=== PATIENT | female | born 1950 | race African-American/Black ===

== ENCOUNTER 2022-03-02 11:57 | Day surgery (SDC) | payer MEDICARE, OTHER ==
[2022-03-02] MEDS ORDERED: TROPICAMIDE 1% OPTH 3 ML BOT ONE (12:24)
[2022-03-02] MEDS ORDERED: Ringers Lactate 0 ML IV ONE (12:25)
[2022-03-02] MEDS ORDERED: LIDOCAINE HCL/PF 3.5% OPTH GEL ONE (12:25)
[2022-03-02] MEDS ORDERED: NA CHLORIDE 0.9% 1,000 ML ONE (12:35)
[2022-03-02] MEDS ORDERED: BSS PLUS IRR ONE (12:39)
[2022-03-02] MEDS ORDERED: MOXIFLOXACIN HCL 10 DROPS/ML **OR USE OPTH ONE (12:39)
[2022-03-02] MEDS ORDERED: EPINEPHRINE/PF 1 MG/ML AMP ONE ×2 (12:39→12:44)
[2022-03-02] MEDS ORDERED: POVIDONE-IODINE 5% EYE DROPS ONE (12:39)
[2022-03-02] MEDS ORDERED: BSS OPTHALMIC SOL 15 ML OPTH ONE (12:39)
[2022-03-02] MEDS ORDERED: DUOVISC 1 KIT OPTH ONE (12:40)
[2022-03-02] MEDS ORDERED: LIDOCAINE 1% MPF 2 ML AMPULE ONE (12:43)
[2022-03-02] MEDS: PHENYLEPHRINE 10% OPTH 5ML ONE ×3 (12:55→13:05)
[2022-03-02] MEDS: CYCLOPENTOLATE 1% OPTH 2 ML ONE ×3 (12:55→13:05)
[2022-03-02] MEDS ORDERED: MIDAZOLAM HCL 2 MG/2 ML INJ ONE (13:22)
[2022-03-02] MEDS ORDERED: ONDANSETRON 4 MG/2 ML VIAL ONE (13:22)
[2022-03-02] MEDS ORDERED: FENTANYL CITR 100 MCG/2 ML ONE (13:22)
[2022-03-02 15:28] VITALS: TEMP 97.6; O2SAT 98
[2022-03-02 15:48] VITALS: BP 128/68
--- NOTE | 2022-03-02 22:31 | OP ---
Date of Procedure: 03/02/2022 Surgeon: Analilia Shukla MD Preoperative Diagnosis: Combined form of cataract, OS (left eye). Operation Performed: Phacoemulsification with intraocular lens implant, left eye. Anesthesia: Ketan Mcbride CRNA, and Bakari Valadez MD. Per cataract surgery. Complications: None. Description Of Procedure: In day surgery, Akten gel was placed in the eye. In the operating room, Akten gel was irrigated out of the eye and the patient was prepped and draped in the usual sterile fashion for ophthalmic surgery. A lid speculum was placed in the left eye. Two paracentesis sites were made superiorly and inferiorly in the limbal cornea. Preservative free lidocaine then Viscoat were placed in the anterior chamber. A keratome was used to enter the anterior chamber. A 360 degree capsulotomy was performed with a utrata forceps. The lens was hydrodissected with BSS and rotated freely. The lens was removed with a chop technique. Residual cortex was removed with the irrigation and aspiration. Provisc was placed in the capsular bag. CC60WF +14.0 lens was placed in the capsular bag without complications. Irrigation and aspiration was used to remove residual viscoelastic. The paracentesis sites were hydrated with BSS. The wound and paracentesis sites were inspected and found to be watertight. Vigamox 0.07 cc was placed intracamerally at the end of the procedure. The eye was patched with a clear plastic shield. The patient was returned to day surgery in good condition. Comments: The lens was loose, but a CTR was not required. Discharge Instructions: The patient is discharged to home in good condition and is to follow up with Dr. Shukla in the morning. KENIA/JASPREET Voice ID: [id number] Report ID: [id number] TEO
== END 2022-03-02 15:45 | disposition home or self-care (01) ==
LOC: OR 11:57
PROVIDERS: ADMIT Ophthalmology Retina Specialist; ATTEND Ophthalmology Retina Specialist
PROC: 08RK3JZ Replacement of Left Lens with Synthetic Substitute, Percutaneous Approach (ICD-10-PCS; principal; 2022-03-02 13:30)
DX: H25.812 Combined forms of age-related cataract, left eye (principal)
CPT/HCPCS: 82947; 66984; J0171; J2250; J3010; J7030; J2405; J7120

== ENCOUNTER 2022-04-27 11:31 | Day surgery (SDC) | payer MEDICARE, OTHER ==
[2022-04-27] MEDS ORDERED: NA CHLORIDE 0.9% 500 ML ONE (11:54)
[2022-04-27] MEDS ORDERED: LIDOCAINE HCL/PF 3.5% OPTH GEL ONE (12:02)
[2022-04-27] MEDS ORDERED: CYCLOPENTOLATE 1% OPTH 2 ML ONE (12:02)
[2022-04-27] MEDS ORDERED: PHENYLEPHRINE 10% OPTH 5ML ONE (12:02)
[2022-04-27] MEDS ORDERED: MOXIFLOXACIN HCL 10 DROPS/ML **OR USE OPTH ONE ×2 (12:03→12:34)
[2022-04-27] MEDS ORDERED: BSS OPTHALMIC SOL 15 ML OPTH ONE (12:34)
[2022-04-27] MEDS ORDERED: BSS PLUS IRR ONE (12:34)
[2022-04-27] MEDS ORDERED: TRYPAN BLUE 0.5 ML SYR OPTH ONE (12:34)
[2022-04-27] MEDS ORDERED: LIDOCAINE 1% MPF 2 ML AMPULE ONE (12:34)
[2022-04-27] MEDS ORDERED: DUOVISC 1 KIT OPTH ONE (12:35)
[2022-04-27] MEDS ORDERED: POVIDONE-IODINE 5% EYE DROPS ONE (12:35)
[2022-04-27] MEDS ORDERED: EPINEPHRINE/PF 1 MG/ML AMP ONE (12:36)
[2022-04-27] MEDS ORDERED: MIDAZOLAM HCL 2 MG/2 ML INJ ONE (13:04)
[2022-04-27] MEDS ORDERED: TETRACAINE HCL 0.5% 4ML OPTH ONE (13:35)
[2022-04-27 14:39] VITALS: BP 147/77; TEMP 97; O2SAT 100
--- NOTE | 2022-04-28 00:59 | OP ---
Date of Procedure: 04/27/2022 Surgeon: Analilia Shukla MD Anesthesiologist: Sandeep Toussaint CRNA and Marco A Graves MD Preoperative Diagnosis: Nuclear sclerotic cataract, right eye. Operation Performed: Phacoemulsification with intraocular lens implant, right eye. Anesthesia: Per cataract surgery. Complications: None. Description Of Procedure: In day surgery, Akten gel was placed in the eye. In the operating room the patient was prepped and draped in the usual sterile fashion for ophthalmic surgery. A lid speculum was placed in the right eye. A paracentesis sites were made superiorly in the limbal cornea. Preservative free lidocaine then Viscoat were placed in the anterior chamber and a a keratome was used to enter the anterior chamber. A 360 degree capsulotomy was performed with a utrata forceps. The lens was hydrodissected with BSS and rotated freely. The lens was removed with a chop technique. 1.77 phaco CDE was used to remove the lens. Residual cortex was removed with the irrigation and aspiration. Provisc was placed in the capsular bag. A CC60WF +13.5 lens was placed in the capsular bag without complications. Irrigation and aspiration were used to remove residual viscoelastic. The paracentesis site was hydrated with BSS. The wound and paracentesis sites were inspected and found to be watertight. Vigamox 0.07 cc was placed intracamerally at the end of the procedure. The eye was patched with a clear shield. The patient was returned to day surgery in good condition. Comments: BSS Plus was used. Discharge Instructions: Ms. Navarro was discharged to home in good condition to follow up with Dr. Shukla in the morning. KENIA/JASPREET Voice ID: [id number] Report ID: [id number] TEO
== END 2022-04-27 14:17 | disposition home or self-care (01) ==
LOC: OR 11:31
PROVIDERS: ADMIT Ophthalmology Retina Specialist; ATTEND Ophthalmology Retina Specialist
PROC: 08RJ3JZ Replacement of Right Lens with Synthetic Substitute, Percutaneous Approach (ICD-10-PCS; principal; 2022-04-27 13:00)
DX: H25.11 Age-related nuclear cataract, right eye (principal); H25.811 Combined forms of age-related cataract, right eye
CPT/HCPCS: 66984; J0171; J2250; J7040

== ENCOUNTER → 2023-05-04 | Emergency (ER) | payer MEDICARE ==
--- OUTSIDE RECORDS SUMMARY | 2023-05-04 05:37 | XMS REPORT | Continuity of Care Document ---
Author Name Unknown Address [address] [place] [id number] [facility]connect Address [address] [place] [address] Care Team Providers Care Advanced Practice Provider Name Role Phone Cami Moeller Attending Clinician [phone] Katy Attending Clinician Unavailable Diane Young Attending Clinician [phone] Modeste_s Attending Clinician Unavailable Iyanoye_S Admitting Clinician Unavailable Narcisae_s Admitting Clinician Unavailable Payers Payer Name Policy Type Policy Number Effective Date Expirati on Date Source [facility] (MEDICARE REPLACEMENT HMO) [id number] 00:00:00 Encounters Start Date/Time End Date/Time Encounter Type Admission Type Attending Clinicians Care Facility Care Department Encounter ID Source 2022-06-05 20:00:00 2022-06-05 21:00:00 RYLIE Moeller [id number] [facility] 2022-05-18 00:00:00 2022-05-18 00:00:00 Outpatient Iyanoye[facility]S [facility] [id number] 2022-05-18 00:00:00 2022-05-18 00:00:00 Outpatient Iyanoye_S [facility] DMG [id number] [facility] 2022-02-09 14:00:00 2022-02-09 15:00:00 RYLIE Freeman [id number] [facility] 2022-02-05 00:00:00 2022-02-05 00:00:00 Outpatient Modeste_s [facility] [id number] [facility] 2021-09-05 06:18:00 2021-09-05 06:18:00 Outpatient [facility] [id number] [facility] 2021-02-21 08:31:00 2021-02-21 08:31:00 Outpatient [facility] [id number] [facility] 2021-01-31 01:00:00 2021-01-31 01:00:00 Outpatient [facility] [id number] [facility]
--- NOTE | 2023-05-04 05:58 | ER ---
Nurse's Notes [facility] Name: Rebeca Navarro Age: 73 yrs Sex: Female : 1950 Arrival Date: 05/04/2023 Time: 05:34 Bed IW1 Private MD: Diagnosis: Facial Laceration/ Laceration without foreign body of cheek and temporomandibular area Presentation: 05/03 05:46 Chief complaint: Patient states: here to have sutures removed that were placed on . cm10 Sutures above left eye. Coronavirus screen: Client denies travel out of the [place] in the last 14 days. At this time, the client does not indicate any symptoms associated with coronavirus-19. Ebola Screen: Patient denies travel to an Ebola-affected area in the 21 days before illness onset. No symptoms or risks identified at this time. Initial Sepsis Screen: Does the patient meet any 2 criteria? No. Patient's initial sepsis screen is negative. Does the patient have a suspected source of infection? No. Patient's initial sepsis screen is negative. Risk Assessment: Do you want to hurt yourself or someone else? Patient reports no desire to harm self or others. Onset of symptoms was May 04, 2023. 05:46 Method Of Arrival: Ambulatory cm10 05:46 Acuity: JOSH 4 cm10 Triage Assessment: 05:47 General: Appears in no apparent distress. comfortable, Behavior is calm, cooperative. cm10 Pain: Denies pain. EENT: No deficits noted. No signs and/or symptoms were reported regarding the EENT system. Neuro: No deficits noted. Level of Consciousness is awake, alert, obeys commands, Oriented to person, place, time, situation. Cardiovascular: No deficits noted. Capillary refill < 3 seconds Patient's skin is warm and dry. Respiratory: No deficits noted. Airway is patent Respiratory effort is even, unlabored, Respiratory pattern is regular, symmetrical. GI: No deficits noted. No signs and/or symptoms were reported involving the gastrointestinal system. : No deficits noted. No signs and/or symptoms were reported regarding the genitourinary system. Derm: No deficits noted. No signs and/or symptoms reported regarding the dermatologic system. Musculoskeletal: No deficits noted. No signs and/or symptoms reported regarding the musculoskeletal system. Historical: - Allergies: 05:47 Codeine; cm10 - PMHx: 05:47 Anxiety; depressive disorder; diabetes mellitus; Hypertensive disorder; cm10 - PSHx: 05:47 back; cateract; Total abdominal hysterectomy; cm10 - Immunization history:: Adult Immunizations up to date. - Social history:: Smoking status: Patient denies any tobacco usage or history of. - Family history:: not pertinent. Screenin:48 [facility] ED Fall Risk Assessment (Adult) History of falling in the last 3 months, cm10 including since admission Yes- single mechanical fall (1 pt) Confusion or Disorientation No (0 pts) Intoxicated or Sedated No (0 pts) Impaired Gait No (0 pts) Mobility Assist Device Used No (0 pt) Altered Elimination No (0 pt) Score/Fall Risk Level 0 - 2 = Low Risk Oriented to surroundings, Maintained a safe environment, Hourly rounding (assess needs \T\ fall precautionary measures) done. Abuse screen: Denies threats or abuse. Denies injuries from another. Nutritional screening: No deficits noted. Tuberculosis screening: No symptoms or risk factors identified. Vital Signs: 05:46 BP 145 / 72; Pulse 61; Resp 18; Temp 97.9; Pulse Ox 97% on R/A; Weight 86.18 kg; Height cm10 5 ft. 1 in. ; Pain 0/10; 05:46 Body Mass Index 35.90 (86.18 kg, 154.94 cm) cm10 05:46 Pain Scale: Adult cm10 ED Course: 05:38 Patient arrived in ED. gm2 05:38 Bernardino Wright MD is Attending Physician. sp4 05:47 Triage completed. cm10 05:48 Arm band placed on. cm10 05:48 Patient has correct armband on for positive identification. Provided Education on: ER cm10 process and procedures. . 05:48 No provider procedures requiring assistance completed. Patient did not have IV access cm10 during this emergency room visit. Administered Medications: No medications were administered Medication: 05:48 VIS not applicable for this client. cm10 Outcome: 05:48 Discharged to home ambulatory, cm10 05:48 Condition: good 05:48 Discharge instructions given to patient, Instructed on discharge instructions, follow up and referral plans. Demonstrated understanding of instructions, follow-up care, 05:58 Discharge ordered by . sp4 06:20 Patient left the ED. cm10 Signatures: Bernardino Wright MD MD sp4 Abbi Verdugo RN RN cm10 Sonja Greenberg 2
--- NOTE | 2023-05-04 05:58 | EDPHYS ---
Physician Documentation [facility] Name: Rebeca Navarro Age: 73 yrs Sex: Female : 1950 Arrival Date: 05/04/2023 Time: 05:34 Bed IW1 Private MD: ED Physician Bernardino Wright HPI: 05/03 05:38 This 73 yrs old Black Female presents to ER via Unassigned with complaints of Suture sp4 Removal. 05:54 Patient presents for suture removal from the left lateral eyebrow which was placed on : sp4 04/22/2023 Time: 00:27 patient had laceration repair with 8 Prolene sutures in the emergency department.. Historical: - Allergies: 05:47 Codeine; cm10 - PMHx: 05:47 Anxiety; depressive disorder; diabetes mellitus; Hypertensive disorder; cm10 - PSHx: 05:47 back; cateract; Total abdominal hysterectomy; cm10 - Immunization history:: Adult Immunizations up to date. - Social history:: Smoking status: Patient denies any tobacco usage or history of. - Family history:: not pertinent. ROS: 05:54 Constitutional: Negative for fever, chills, and weight loss, sp4 05:54 All other systems are negative, Exam: 05:54 Constitutional: This is a well developed, well nourished patient who is awake, alert, sp4 and in no acute distress. Head/Face: Normocephalic, left lateral eyebrow laceration in healing stages, sutures still present Eyes: Pupils equal round and reactive to light, extra-ocular motions intact. Lids and lashes normal. Conjunctiva and sclera are not injected. Cornea within normal limits. Periorbital areas with no swelling, redness, or edema. ENT: Nares patent. No nasal discharge, no septal abnormalities noted. Tympanic membranes are normal and external auditory canals are clear. Oropharynx with no redness, swelling, or masses, exudates, or evidence of obstruction, uvula midline. Mucous membranes moist. Neck: Trachea midline, no thyromegaly or masses palpated, and no cervical lymphadenopathy. Supple, full range of motion without nuchal rigidity, or vertebral point tenderness. Chest/axilla: Normal chest wall appearance and motion. Nontender with no deformity. No lesions are appreciated. Cardiovascular: Regular rate and rhythm with a normal S1 and S2. No gallops, murmurs, or rubs. Normal PMI, no JVD. No pulse deficits. Respiratory: Lungs have equal breath sounds bilaterally, clear to auscultation and percussion. No rales, rhonchi or wheezes noted. No increased work of breathing, no retractions or nasal flaring. Abdomen/GI: Soft, with normal bowel sounds. No distension or tympany. No guarding or rebound. No evidence of tenderness throughout. Back: No spinal tenderness. No costovertebral tenderness. Skin: Warm, dry with normal turgor. Normal color with no rashes, no lesions, and no evidence of cellulitis. MS/ Extremity: Pulses equal, no cyanosis. Neurovascular intact. Full, normal range of motion. Neuro: Awake and alert, GCS 15, oriented to person, place, time, and situation. Cranial nerves II-XII grossly intact. Motor strength 5/5 in all extremities. Sensory grossly intact. Psych: Awake, alert, with orientation to person, place and time. Behavior, mood, and affect are within normal limits Vital Signs: 05:46 BP 145 / 72; Pulse 61; Resp 18; Temp 97.9; Pulse Ox 97% on R/A; Weight 86.18 kg; Height cm10 5 ft. 1 in. ; Pain 0/10; 05:46 Body Mass Index 35.90 (86.18 kg, 154.94 cm) cm10 05:46 Pain Scale: Adult cm10 Procedures: 05:54 Suture/Staple removal: Removed 8 sutures, from left christianity - left lateral eyebrow , sp4 site appears well healed, dressed with band aid, Patient tolerated well, No problem . MDM: 05:54 Differential Diagnosis laceration suture removal . Data reviewed: vital signs, nurses sp4 notes, old medical records. ED course: Stable for discharge home after suture removal today. 05:58 Patient medically screened. sp4 Administered Medications: No medications were administered Disposition Summary: 05/04/23 05:58 Discharge Ordered Notes: Location: Home sp4 Problem: new sp4 Symptoms: have improved sp4 Condition: Stable sp4 Diagnosis - Facial Laceration/ Laceration without foreign body of cheek and temporomandibular sp4 area Followup: sp4 - With: Private Physician - When: As needed - Reason: Discharge Instructions: - Discharge Summary Sheet sp4 - Suture Removal, Care After sp4 Forms: - Patient Portal Instructions sp4 Signatures: Bernardino Wright MD MD sp4 Abbi Verdugo RN RN cm10
[2023-05-04 06:29] VITALS: BP 145/72; TEMP 97.9; O2SAT 97
== END ==
LOC: ER 05:34
DX: Z48.02 Encounter for removal of sutures (principal)

== ENCOUNTER 2023-12-08 18:51 | Emergency (ER) | payer MEDICARE ==
--- OUTSIDE RECORDS SUMMARY | 2023-12-08 18:53 | XMS REPORT | Continuity of Care Document ---
Author Name Unknown Address [address] [facility] [address] [place], [place] [address] [place] [address] thconnect Address [address] [facility] [address] [place] [address] Care Team Providers Care Management Analyst Name Role Phone Kajal Guzmán Attending Clinician Iván Plata Attending Clinician [phone] Cami Moeller Attending Clinician Sajan_Leona Attending Clinician Unavailable Diane Young Attending Clinician [phone] Lydia_s Attending Clinician Unavailable Iyanoykylah_S Admitting Clinician Unavailable Modestkylah_s Admitting Clinician Unavailable Payers Payer Name Policy Type Policy Number Effective Date Expirati on Date Source [facility] (MEDICARE REPLACEMENT O) [id number] 2020 00:00:00 Problems Condition Name Condition Details Condition Category Status Onset Date Resolution Date Last Treatment Date Treating Clinician Comments Source Acquired hammer toe of right foot Hammer toe of right foot Problem [facility] Acquired hammer toe of left foot Other hammer toe(s) (acquired) , left foot Problem [facility] Allergies, Adverse Reactions, Alerts Allergy Name Allergy Type Status Severity Reaction(s) Onset Date Inactive Date Treating Clinician Comments Source codeine codeine Active Unknown [facility] Social History Social Habit Start Date Stop Date Quantity Comments Source History of Tobacco Use [facility] Sex Assigned At [facility] Smoking Status Start Date Stop Date Source Never Smoker [facility] Medications Ordered Medication Name Filled Medication Name Start Date Stop Date Current Medication? Ordering Clinician Indication Dosage Frequency Signature (SIG) Comments Components Source escitalopra m oxalate 20 mg tablet escitalopra m oxalate 20 mg tablet Yes [facility] gabapentin 600 mg tablet gabapentin 600 mg tablet Yes [facility] tramadol hcl 50 mg tablet tramadol hcl 50 mg tablet Yes [facility] hydrochloro thiazide 25 mg tablet hydrochloro thiazide 25 mg tablet Yes [facility] bupropion hcl er (xl) 300 mg tablet er 24 hr bupropion hcl er (xl) 300 mg tablet er 24 hr Yes [facility] FARXIGA 5 MG TABLET FARXIGA 5 MG TABLET Yes [facility] propranolol hcl er 60 mg capsule er 24 hr propranolol hcl er 60 mg capsule er 24 hr Yes [facility] rosuvastati n calcium 5 mg tablet rosuvastati n calcium 5 mg tablet Yes [facility] Spironolact one 25 MG Spironolact one 25 MG No Spironolac tone 25 MG torsemide 10 mg tablet torsemide 10 mg tablet Yes [facility] Escitalopra m Oxalate 20 MG Escitalopra m Oxalate 20 MG No Escitalopr am Oxalate 20 MG chlorthalid one 25 mg tablet chlorthalid one 25 mg tablet Yes [facility] buPROPion HCl ER (XL) 300 MG buPROPion HCl ER (XL) 300 MG No buPROPion HCl ER (XL) 300 MG spironolact one 25 mg tablet spironolact one 25 mg tablet Yes [facility] buPROPion HCl ER (XL) 150 MG buPROPion HCl ER (XL) 150 MG No buPROPion HCl ER (XL) 150 MG escitalopra m oxalate 20 mg tablet escitalopra m oxalate 20 mg tablet Yes [facility] Torsemide 10 MG Torsemide 10 MG No Torsemide 10 MG pantoprazol e sodium [address] pantoprazol e sodium [address] Yes [facility] Gabapentin 600 MG Gabapentin 600 MG No Gabapentin 600 MG gabapentin 600 mg tablet gabapentin 600 mg tablet Yes [facility] Farxiga 5 MG Farxiga 5 MG No Farxiga 5 MG tramadol hcl 50 mg tablet tramadol hcl 50 mg tablet Yes [facility] traMADol HCl 50 MG traMADol HCl 50 MG No traMADol HCl 50 MG prednisolon e acetate 1 % suspension prednisolon e acetate 1 % suspension Yes [facility] bromfenac sodium (once-daily ) 0.09 % solution bromfenac sodium (once-daily ) 0.09 % solution Yes [facility] chlorthalid one 25 mg tablet chlorthalid one 25 mg tablet Yes [facility] dorzolamide hcl 2 % solution dorzolamide hcl 2 % solution Yes [facility] spironolact one 25 mg tablet spironolact one 25 mg tablet Yes [facility] albuterol sulfate hfa 108 (90 base) mcg/act aerosol soln albuterol sulfate hfa 108 (90 base) mcg/act aerosol soln Yes [facility] bupropion hcl er (xl) 150 mg tablet er 24 hr bupropion hcl er (xl) 150 mg tablet er 24 hr Yes [facility] Encounters Start Date/Time End Date/Time Encounter Type Admission Type Attending Clinicians Care Facility Care Department Encounter ID Source 2023-09-23 10:03:02 Outpatient Ronnie Anaya [facility] [id number] Belen Gómez [facility] 2023-11-29 07:30:00 2023-11-29 08:30:00 Annual D2Me Kajal Guzmán [id number] [facility] 2023-10-12 00:00:00 2023-10-12 00:00:00 Office Visit- Est Pt.- Level 3 [facility] [id number] [facility]stro 2023-09-23 00:00:00 2023-09-23 00:00:00 Office Visit- New Pt.- Level 3 [facility] [id number] [facility] [employer] 2023-09-14 11:00:00 2023-09-14 11:40:00 Hypertensi on Clinical Guide Initial Assessment Iván Plata DEV DEV CLACXUSWHJ E79 [facility] 2022-06-05 20:00:00 2022-06-05 21:00:00 CAV Sera Iyanoye [id number] [facility] 2022-05-18 00:00:2022-05-18 00:00:00 Outpatient Iyanoye_S [facility] [id number] 2022-05-18 00:00:00 2022-05-18 00:00:00 Outpatient [place]yanoye_S [facility] [id number] [facility] 2022-02-09 14:00:00 2022-02-09 15:00:00 CAV Diane Brewstere [id number] [facility] 2022-02-05 00:00:00 2022-02-05 00:00:00 Outpatient Modeste_s [facility] [id number] [facility] 2021-09-05 06:18:00 2021-09-05 06:18:00 Outpatient [facility] [id number] [facility] 2021-02-21 08:31:00 2021-02-21 08:31:00 Outpatient DMG [facility] [id number] [facility] 2021-01-31 01:00:00 2021-01-31 01:00:00 Outpatient DMG DM[facility] [id number] [facility] Results Test Description Test Time Test Comments Results Result Co mments Source Bako Nail Bako Nail Notes Date/Time Note Provider Source 2023-11-29 07:30:00 ASSESSMENT SUMMARY ARTUR NAQVI is a 73 year old woman seen today by [facility] for a [facility]. Additional CommentsSUMMARY:This is a [facility] ([email or web address] Video Room Video) Comprehensive Visit for Care ManagementToday we focused on her DM2 complicated by HTN, HLD, and CKD3a, HF, Pulmonary HTN, Lumbar Spinal Enthesopathy, MDD, Cervicalgia, and Hypertensive Heart and Renal DiseaseDiscussed Bundled Reward-mbr will receive after today's visitDiscussed CoD and provided #Mbr requesting assistance from team regarding a Mental Health Counselor via telemedicine. Case created for the team.She will continue excellent care and follow up with her PCP and specialistsShe will outreach DMG as needed in the future Visit PurposeThese visits are scheduled to augment PCPs to close care and documentation gaps, reconcile medications, help patients make full use of their [facility] benefits and educate patients about their conditions. This visit DOES NOT replace the your Annual Medicare Visit with the patient. The member was encouraged to schedule an AWV with their PCP to review our visit summary & recommendations. See below for teaching and instruction given regarding specific diagnoses. Member verbalized understanding to all. Members Preferred Language Par[place]ayan Patient Currently Located in their home state of [place], YES DIAGNOSIS VESZWVCV43.07 - Spinal enthesopathy, lumbosacral mbdssuK28.0 - Hypertensive heart and chronic kidney disease with heart failure and stage 1 through stage 4 chronic kidney disease, or unspecified chronic kidney gulqfezD35.1 - Major depressive disorder, recurrent, jllkkkbvW08.01 - Morbid (severe) obesity due to excess msaywbtlA67.31 - Chronic kidney disease, stage 3aZ68.37 - Body mass index [BMI] 37.0-37.9, sywqdN36.2 - UdylqmxcnmoT65.5 - Hyperlipidemia, unspecified PATIENT INTAKE Has the patient had an Annual Wellness Visit this calendar year?: AWV already completed MEDICATION RECONCILIATION Did you review the patient's prescription and non-prescription drugs, vitamins, herbal remedies, and other supplements, AND is the accompanying medication list documented in the medical record?: Yes GENERAL ASSESSMENT Feet: 5 Inches: 1 Pounds: 199 Patient BMI: 37.60 Notes for E66.01: -BMI: 37.60, Morbid Obesity confirmed on PE -Control co-morbid disease -Morbid Obesity complicated by DM2, HTN, and HLD -60 ounces oral water hydration daily -Encouraged use of Silver Sneakers benefit for hydrotherapy and water aerobics -Follow up with PCP Morbid obesity confirmed on physical exam: Yes Dx: Z68.37 - Body mass index [BMI] 37.0-37.9, adult Notes for Z68.37: -BMI: 37.60, Morbid Obesity confirmed on PE -Control co-morbid disease -Morbid Obesity complicated by DM2, HTN, and HLD -60 ounces oral water hydration daily -Encouraged use of Silver Sneakers benefit for hydrotherapy and water aerobics -Follow up with PCP Systolic Blood Pressure: 112 Diastolic Blood Pressure: 65 Supplemental oxygen status: Room Air Supplemental Oxygen Needs: Does not need supplemental oxygen In general, would you say your quality of life is: Very good How would you rate your pain on average? (0 = No Pain, 10 = Worst Imaginable Pain): 6 Do you exercise regularly?: No SUBSTANCE USE - Alcohol Use The patient has never been a drinker: Yes SUBSTANCE USE - Controlled Prescribed Substances [Chronic Use] Has the patient ever been prescribed a controlled substance used near DAILY for a period of 30 DAYS OR LONGER?: No SUBSTANCE USE - Non-Prescribed Controlled Substances The patient has not disclosed taking any illicit substances: Yes SCREENING - Depression Previously diagnosed with major depressive disorder?: Yes Is the patient currently on antidepressant medication?: Yes Little interest or pleasure in doing things?: More than half the days (+2) Feeling down, depressed, or hopeless?: More than half the days (+2) PHQ2 Score: 4 Trouble falling or staying asleep, or sleeping too much?: More than half the days (+2) Feeling tired or having little energy?: More than half the days (+2) Poor appetite or overeating?: Several days (+1) Feeling bad about yourself, or that you are a failure or have let yourself or your family down?: More than half the days (+2) Trouble concentrating on things, such as reading the newspaper or watching television?: Several days (+1) Moving or speaking so slowly that other people could have noticed? Or so fidgety or restless that you have been moving a lot more than usual?: Not at all (0) Thoughts that you would be better off , or thoughts of hurting yourself in some way?: Not at all (0) PHQ9 Score: 12 Had > 1 episode of major depression?: Yes Previously recorded diagnosis of bipolar disorder, schizoaffective disorder, or schizophrenia?: No / Unknown Dx: F33.1 - Major depressive disorder, recurrent, moderate Notes for F33.1: -MDD, Recurrent, Moderate, unstable on current medical mgmt -Diagnosed in her 20s. Lost her 3 years ago. She is compliant with Bupropion and Escitalopram but feels this regimen is not as effective as it previously has been. She is interested in possible medication adjustments/changes, and seeking a female telemedicine psychiatrist. Case created for the team to assist. -PHQ-9 today 02/17 -Continue current medical mgmt -Follow up with PCP DISCUSSED: Registered Medical Assistant the patient on the role of cognitive behavioral therapy and pharmacotherapy DISCUSSED: Pharmacotherapy takes 2-6 weeks to work ACTION: Consider follow up with PCP for prescription and management of antidepressant SCREENING - Fall Risk Have you fallen in the past year?: No Do you feel unsteady when standing or walking?: No SCREENING - DME & Home Health Does the patient use any durable medical equpiment?: No Does the patient use home health, physical therapy or assisted services?: No New orders, referrals, or any other assistance with DME or home health needed at this time?: No GENERAL REVIEW OF SYSTEMS Changes in Vision: Yes HEENT Symptoms Notes: Wears corrective lenses Joint Pain / Swelling: Yes Review of systems negative unless otherwise indicated above Review of systems negative unless otherwise indicated above: Yes PHYSICAL EXAM alert, well-nourished, well-developed, NAD: Yes good judgement, normal mood, normal affect: Yes oriented x 3, recent memory normal, remote memory normal, normal gait: Yes HEENT Physical Exam Notes: Wears corrective lenses no pedal edema, capillary refill wnl, no varicosities, no cyanosis: Yes normal work of breathing, no audible wheezing or stridor, no cough: Yes non-distended, no tenderness: Yes no rash, no lesions, no ulcers, no jaundice: Yes ROM limited: Yes Tenderness: Yes CARDIOVASCULAR - Venous Embolism & Thrombosis Previous diagnosis of venous embolism/thrombus that is CURRENTLY treated with an anticoagulant? No MEDICATION REFILLS Please confirm: Are any of the medications listed above within 30 days of their next fill date, or past due of their next fill date?: No STATIN USE IN PERSONS WITH DIABETES OR CARDIOVASCULAR DISEASE Statin status: Already on a statin regimen Statin refilled within last 90 days?: Yes Approxomiate date of statin refill: 2023-09-24 RENAL - Chronic Kidney Disease Does patient carry a diagnosis of chronic kidney disease?: Yes Prescribed a phosphate binder (e.g. Sevelamer), a vitamin D analog (e.g. Calcitriol), or a calcimimetic agent (e.g. Sensipar)?: No Dx: N18.31 - Chronic kidney disease, stage 3a Notes for N1.31: -CKD3a, stable on current medical mgmt -BP at goal today per KDIGO Guidelines at 112/65 -Compliant with Chlorthalidone, Farxiga, Propranolol, Spironolactone, and Torsemide -Renal function (08/2023): BUN-24 Serum Cre-1.13 eGFR-51 . iPTH- uACR-12 -Continue current medical mgmt -Follow up with PCP ENDOCRINE - Diabetes Notes for E78.5: -HLD, stable on current medical mgmt -Compliant with Rosuavstatin -Lipid Profile (08/2023): Chol-228, LDL-148, HDL-60, Trig-114 -Control co-morbid disease -Follow up with PCP RHEUMATOID ARTHRITIS Previously recorded diagnosis of rheumatoid arthritis?: No Prescribed a disease-modifying antirheumatic drug (DMARD)?: No Dx: M46.07 - Spinal enthesopathy, lumbosacral region Additional Diagnosis Notes: -Lumbar Spinal Enthesopathy, stable on current medical mgmt -Diagnosed 25 years ago -Complaint with Gabapentin and Tramadol. RFA and Epidurals in the past -Continue current medical mgmt -Follow up with PCP/Pain Mgmt MORBID OBESITY Patient BMI: 37.60 The patient has a BMI of 37.60 as well as hypertension: Yes The patient has a BMI of 37.60 as well as hyperlipidemia: Yes The patient has a BMI of 37.60 as well as diabetes: Yes Dx: E66.01 - Morbid (severe) obesity due to excess calories Notes for E66.01: -BMI: 37.60, Morbid Obesity confirmed on PE -Control co-morbid disease -Morbid Obesity complicated by DM2, HTN, and HLD -60 ounces oral water hydration daily -Encouraged use of Silver Sneakers benefit for hydrotherapy and water aerobics -Follow up with PCP Morbid obesity confirmed on physical exam: Yes Dx: Z68.37 - Body mass index [BMI] 37.0-37.9, adult Notes for Z68.37: -BMI: 37.60, Morbid Obesity confirmed on PE -Control co-morbid disease -Morbid Obesity complicated by DM2, HTN, and HLD -60 ounces oral water hydration daily -Encouraged use of Silver Sneakers benefit for hydrotherapy and water aerobics -Follow up with PCP COMMON DIAGNOSES The patient has a diagnosis of hyperlipidemia: Yes The patient has a diagnosis of hypertension: Yes Statin status: Already on a statin regimen Dx: E78.5 - Hyperlipidemia, unspecified Notes for E78.5: -HLD, stable on current medical mgmt -Compliant with Rosuavstatin -Lipid Profile (08/2023): Chol-228, LDL-148, HDL-60, Trig-114 -Control co-morbid disease -Follow up with PCPDISCUSSED: Educated patient on etiology and natural history of hyperlipidemiaDISCUSSED: Educated patient on lifestyle modifications such as diet and exercise to improve lipid levelsDISCUSSED: Educated patient on importance of medication adherence to improve lipid levelsACTION: Confirmed that patient's lipid levels are being monitored by PCP In addition to hypertension, the patient has the following condition(s): CHF + CKD Stage 1-4 Dx: I13.0 - Hypertensive heart and chronic kidney disease with heart failure and stage 1 through stage 4 chronic kidney disease, or unspecified chronic kidney disease Notes for I13.0: -CKD3a, HF, and HTN, stable on current medical mgmt -BP at goal today per KDIGO Guidelines at 112/65 -CKD3a HF, and HTN comanaged with Chlorthalidone, Farxiga, Propranolol, Spironolactone, and Torsemide -Renal function (08/2023): BUN-24 Serum Cre-1.13 eGFR-51 . iPTH- uACR-12 -Continue current medical mgmt -Follow up with PCPDISCUSSED: Educated patient on etiology and natural history of hypertensionDISCUSSED: Educated patient on lifestyle modifications such as diet and exercise to improve blood pressureDISCUSSED: Educated patient on importance of medication adherence for blood pressure control Dx: M54.2 - Cervicalgia Additional Diagnosis Notes: -Cervicalgia, stable on current medical mgmt -She underwent Cervical Discectomy and bone graft with fusion -Compliant with Gabapentin and Tramadol -Continue current medical mgmt -Follow up with PCP ADDITIONAL MEDICAL HISTORY Condition: DM2 complicated by HTN, CKD3a, and HLD Condition Stability: Stable Medication Adherence: Taking medication as prescribed Medication Regimen Recommendations: No changes recommended Follows with (provider): PCP Additional Notes-: -DM2 (2 years), compliant with Farxiga -HTN (12 years) and CKD3a compliant with Chlorthalidone, Propranolol, Spironolactone, and Torsemide -HLD (10 years), compliant with Rosuvastatin -Continue current medical mgmt -Follow up with PCP Condition: HF Condition Stability: Stable Medication Adherence: Taking medication as prescribed Medication Regimen Recommendations: No changes recommended Follows with (provider): Cardiology/PCP Additional Notes-: -HFpEF (1 year), managed with Farxiga, Chlorthalidone, Spironolactone, and Torsemide -Continue current medical mgmt -Follow up with PCP/Cardiology Condition: Pulmonary HTN Condition Stability: Stable Medication Adherence: Taking medication as prescribed Medication Regimen Recommendations: No changes recommended Additional Notes-: -Pulmonary HTN (1 year)compliant with Chlorthalidone, Spironolactone, and Torsemide -Continue current medical mgmt -Follow up with PCP/Cardiology ASSESSMENT SUMMARY Member medical history, medications, and most recent labs reviewed in [email or web address]. Discussed medication use and side effects with members prior to prescribing. Drug interactions reviewed: Yes APPOINTMENT CPT CODE* Please indicate how this visit was conducted: Video Please select the video platform used during the visit: [email or web address] Video Room Please record the total amount of time you spent on this patient visit- Total time includes time spent on preparation, speaking with the patient, documentation, and post-visit coordination of care - This is limited to time spent ON THE DATE OF SERVICE (e.g. does not include time spent on days prior to or after the date of service) 40 - 59 minutes Kajal Guzmán [facility] 2023-09-14 11:00:00 Members Preferred Language [place]ayan Recent BP Readings:09/12: 125/65 (from Dr.s boonet) [facility] ### HISTORY OF PRESENT ILLNESS Patient is a 73 y/o female who is being followed up with for management of uncontrolled HTN by [facility] ASSESSMENT PLAN HTN PROGRAM DISPOSITION: NOT CLINCIAL ELIGIBLE REVIEWED: Lifestyle modifications such as DASH diet and exercise to improve blood pressure: Yes DISCUSSED: Importance of medication adherence for BP control: Yes REVIEWED: Value in continuning to take BP daily and keep records for future PCP appointments: YesCreated case for to find a mental health provider for mbr. She is blocked from referral. Assessment/Plan Complete: Yes CONTROLLING BLOOD PRESSURE Do you have an automatic blood pressure cuff?: Yes Has the member checked their blood pressure today or in the last week?: Yes Iván Plata [facility]
--- NOTE | 2023-12-08 21:21 | RAD REPORT ---
EXAM: CT brain without contrast HISTORY: fall COMPARISON: None TECHNIQUE: Multiple contiguous axial images were obtained and a CT of the brain without contrast. Sag ittal and coronal reformats were performed. One or more of the following dose reduction techniques were used: Automated exposure control, adjust ment of the mA and/or kV according to patient size, and/or iterative reconstruction. FINDINGS: No evidence of hydrocephalus, intracranial hemorrhage, or extra-axial fluid collection. The brain is normal in morphology. No evidence of midline shift or areas of brain edema. The calvarium is intact. The visualized paranasal sinuses and mastoid air cells are essentially clear . IMPRESSION: No evidence of acute intracranial abnormality. EXAM: CT of the cervical spine without contrast HISTORY: Neck pain, injury fall TECHNIQUE: Multiple contiguous axial images were obtained in a CT of the cervical spine without contr ast. Sagittal and coronal reformats were performed. FINDINGS: 3 mm degenerative anterolisthesis of C2 on 3. 3 mm degenerative anterolisthesis of C3 on 4. No evidence of acute fracture or subluxation.. Multilevel degenerative changes are present mid cervical spine. C7 and T1 fusion hardware present. No prevertebral soft tissue swelling is seen. The posterior facets are well aligned. Normal alignment of the skull base with the cervical spine is seen. The lung apices are unremarkable. IMPRESSION: No evidence of acute osseous abnormality of the cervical spine. Moderate spondylosis of the cervical spine.
--- NOTE | 2023-12-08 21:24 | RAD REPORT ---
EXAM: CT CHEST, ABDOMEN AND PELVIS WITHOUT CONTRAST CLINICAL INDICATION: FALL TECHNIQUE: CT chest, abdomen and pelvis was performed without contrast, as per department protocol. A xial, sagittal and coronal reconstructions were obtained. One or more of the following dose reduction techniques were used: Automated exposure control, adjustment of the mA and/or kV according to patient size, and/or iterative reconstruction. Unless otherwise specified, incidental findings do not require dedicated imaging follow-up. Examination is limited by the lack of intravenous contrast material. COMPARISON: No prior exam. FINDINGS: LUNGS: No evidence of airspace or interstitial process. No nodules. PLEURA: No pleural effusion. No pneumothorax. MEDIASTINUM AND LYMPH NODES: No mediastinal mass or fluid collection. Normal size mediastinal, hilar, and axillary lymph nodes. OSSEOUS STRUCTURES AND CHEST WALL: Intact. LIVER: Normal in size and contour. No focal lesion or biliary dilatation. Grossly unremarkable gallbl adder. PANCREAS: No mass, ductal dilation, or umair-pancreatic fluid. SPLEEN: Normal size. No focal lesion. ADRENALS: Normal; no mass. KIDNEYS: Normal size and contour. No hydronephrosis. URINARY BLADDER: Normal contour. GASTROINTESTINAL TRACT: No bowel obstruction, free air, significant free fluid or abscess. Signific ant stool is present throughout the colon. APPENDIX: Normal appendix. LYMPH NODES: No lymphadenopathy. MUSCULOSKELETAL: Grade 1-2 anterolisthesis of L4 on 5. OTHER: IMPRESSION: No acute or significant abnormalities seen in the chest, abdomen or pelvis. Significant stool is present throughout the colon.
[2023-12-08 21:33] LABS: Absolute Basophils 0.1 K/uL (0-0.5); Absolute Eosinophils 0.2 K/uL (0-0.5); Absolute Lymphocytes (CBC) 2.1 K/uL (0.7-4.9); Absolute Monocytes 0.7 K/uL (0.1-1.3); Absolute Neutrophil 3.4 K/uL (1.8-8.0); Basophils % 0.8 % (0-1.3); Eosinophils % 2.8 % (0-4.4); Hematocrit 36.6 % (36.0-45.0); Hemoglobin 12.2 g/dL (12.0-15.0); Lymphocytes % 33.3 % (15.3-44.8); MCH 28.3 pg (27.0-35.0); MCHC 33.4 g/dL (32.0-36.0); MCV 84.8 fL (80-100); MPV 7.7 fL (7.6-11.3); Monocytes % 10.3 % (3.3-12.3); Neutrophils % 52.8 % (41.7-73.7); Nucleated Red Blood Cells % 0.2 % (0-0); Platelets 232 thou/uL (152-406); RBC Red Blood Cell Count 4.32 M/uL (3.86-4.86); Red Cell Distribution Width 16.8 % (12.1-15.2); Urine Bilirubin NEGATIVE (Negative); Urine Blood Negative (Negative); Urine Clarity Clear (Clear); Urine Color Colorless (Yellow); Urine Glucose 3+ (Negative); Urine Ketones NEGATIVE (Negative); Urine Microscopic Reflex YN NO UMIC; Urine Nitrite NEGATIVE (Negative); Urine Protein NEGATIVE (Negative); Urine Urobilinogen Normal (Normal); Urine pH 7.5 (5.0-7.0)
[2023-12-08 21:39] LABS: PT Prothrombin Time 11.8 SECONDS (9.4-12.5); Protime INR 1.06
[2023-12-08 21:53] LABS: ALT/SGPT 23 U/L (13-56); AST/SGOT 15 U/L (15-37); Albumin 4.2 g/dL (3.4-5.0); Albumin/Globulin Ratio 1.1 (1.1-1.8); Alkaline Phosphatase 77 U/L (45-117); Anion Gap 7.1 mEq/L (5.0-15.0); BUN Blood Urea Nitrogen 28 mg/dL (7-18); Bicarbonate 35 mEq/L (21-32); Bilirubin Direct < 0.2 mg/dL (0-0.2); Bilirubin Indirect, Calculated 0.1 mg/dL (0.2-0.8); Bilirubin Total 0.3 mg/dL (0.2-1.0); Globulin 3.8 g/dL (2.3-3.5); Glomerular Filtration Rate 34 ml/min (=/>90); Glucose Level 86 mg/dL (74-106); Magnesium 2.7 mg/dL (1.6-2.4); Potassium 4.1 mEq/L (3.5-5.1); Sodium Level 138 mEq/L (136-145)
--- NOTE | 2023-12-08 22:43 | EDPHYS ---
Physician Documentation [facility] Name: Rebeca Navarro Age: 73 yrs Sex: Female : 1950 Arrival Date: 12/08/2023 Time: 18:51 Bed 11 Private MD: ED Physician Jeanmarie Reyna HPI: 12/07 20:45 This 73 yrs old Black Female presents to ER via Ambulatory with complaints of Head cp Injury-Adult. 20:45 The patient or guardian reports injury, tenderness. The complaints affect the forehead. cp Context of injury: resulted from a fall, after becoming dizzy when she bent over to pick something up off the floor. Onset: The symptoms/episode began/occurred today. 20:45 Associated signs and symptoms: Loss of consciousness: This patient did not experience cp any loss of consciousness. Pertinent positives: headache, neck pain, dizziness. Severity of symptoms: in the emergency department the symptoms are unchanged, despite home interventions. 20:45 Patient reports falling asleep while sitting on edge of bed about 1 week ago and cp falling out of bed hitting head on floor. Patient reports she did not seek medical attention after that incident. Historical: - Allergies: 19:07 Codeine; ll1 - PMHx: 19:07 Anxiety; depressive disorder; diabetes mellitus; Hypertensive disorder; ll1 - PSHx: 19:07 back; cateract; Total abdominal hysterectomy; ll1 - Immunization history:: Adult Immunizations up to date. - Infectious Disease History:: Denies. - Social history:: Smoking status: Patient denies any tobacco usage or history of. ROS: 20:50 Constitutional: Negative for body aches, chills, fever, poor PO intake, cp 20:50 Cardiovascular: Negative for edema, palpitations, cp 20:50 Eyes: Negative for injury, pain, redness, and discharge, cp 20:50 ENT: Negative for drainage from ear(s), ear pain, sore throat, difficulty swallowing, difficulty handling secretions, 20:50 Respiratory: Negative for cough, shortness of breath, wheezing, 20:50 Abdomen/GI: Positive for nausea, Negative for vomiting, diarrhea, constipation, 20:50 Neuro: Positive for dizziness, headache, near syncope, Negative for loss of consciousness, seizure activity, syncope, weakness, 20:50 All other systems are negative, Exam: 20:55 Constitutional: The patient appears in no acute distress, alert, awake, cp non-diaphoretic, non-toxic, well developed, well nourished, overweight 20:55 Head/face: Noted is contusion, that is superficial, of the forehead, swelling, that is cp mild, 20:55 Eyes: Periorbital structures: appear normal, Pupils: equal, round, and reactive to light and accomodation, Extraocular movements: intact throughout, Conjunctiva: normal, no exudate, no injection, Sclera: no appreciated abnormality, Lids and lashes: appear normal, bilaterally, 20:55 ENT: External ear(s): are unremarkable, Ear canal(s): are normal, clear, TM's: dullness, bilaterally, Nose: is normal, Mouth: Lips: moist, Oral mucosa: moist, Posterior pharynx: Airway: no evidence of obstruction, patent, Dental exam: no injuries, 20:55 Neck: C-spine: C-collar placed in ED, vertebral tenderness, that is mild, appreciated at C4 and C5, 20:55 Chest/axilla: Inspection: normal, Palpation: is normal, no crepitus, no tenderness, 20:55 Cardiovascular: Rate: bradycardic, Rhythm: regular, Edema: ankle edema, that is mild, JVD: is not appreciated, 20:55 Respiratory: the patient does not display signs of respiratory distress, Respirations: normal, no use of accessory muscles, no retractions, labored breathing, is not present, Breath sounds: are clear throughout, no decreased breath sounds, no stridor, no wheezing, 20:55 Abdomen/GI: Inspection: abdomen appears normal, Palpation: abdomen is soft and non-tender, in all quadrants, 20:55 Back: vertebral tenderness, is not appreciated, 20:55 Musculoskeletal/extremity: Extremities: all appear grossly normal, with no appreciated pain with palpation, 20:55 Neuro: Orientation: to person, place \T\ time. Mentation: able to follow commands, Cerebellar function: Romberg testing is negative, Motor: moves all fours, no focal deficits, Sensation: is normal, 21:18 ECG was reviewed by the Attending Physician. cp Vital Signs: 19:07 BP 130 / 62; Pulse 50; Resp 16; Pulse Ox 95% ; Weight 89.36 kg; Height 5 ft. 1 in. ; ll1 Pain 0/10; 21:27 BP 160 / 75; Pulse 46; Resp 18; Pulse Ox 98% on R/A; cm10 19:07 Body Mass Index 37.22 (89.36 kg, 154.94 cm) ll1 19:07 Pain Scale: Adult ll1 Miracle Coma Score: 20:45 Eye Response: spontaneous(4). Motor Response: obeys commands(6). Verbal Response: cp oriented(5). Total: 15. MDM: 19:34 Medical Screening Exam initiated cp 22:00 Differential diagnosis: Contusion of Hematoma on Intracranial bleed- Concussion cp cerebral contusion, symptomatic bradycardia, non-stemi. 22:45 Data reviewed: vital signs, nurses notes, lab test result(s), EKG, radiologic studies, cp CT scan, plain films, and as a result, I will transfer patient due to administration requests for unavailable beds. 22:45 I considered the following discharge prescriptions or medication management in the emergency department Medications were administered in the Emergency Department. See MAR. Independent interpretation of the following test(s) in the Emergency Department EKG: See my EKG interpretation above. Care significantly affected by the following chronic conditions: Diabetes, Hypertension. Counseling: I had a detailed discussion with the patient and/or guardian regarding the historical points, exam findings, and any diagnostic results supporting the discharge/admit diagnosis, lab results, radiology results, the need to transfer to another facility. 12/07 20:42 Order name: Basic Metabolic Panel; Complete Time: 22:27 12/07 22:27 Interpretation: Normal except: CO2 35; BUN 28; CRE 1.61; GFR 34; CA 10.6. 12/07 20:42 Order name: CBC with Diff; Complete Time: 22:27 12/07 22:28 Interpretation: Normal except: RDW 16.8. 12/07 20:42 Order name: LFT's; Complete Time: 22:27 12/07 20:42 Order name: Magnesium; Complete Time: 22:27 12/07 22:28 Interpretation: Abnormal: MG 2.7. 12/07 20:42 Order name: PT-INR; Complete Time: 22:27 12/07 20:42 Order name: Troponin HS; Complete Time: 22:27 12/07 23:13 Interpretation: Reviewed. cp 12/07 20:42 Order name: Urinalysis w/ reflexes; Complete Time: 22:31 cp 12/07 22:30 Interpretation: Reviewed. cp 12/07 20:42 Order name: XRAY Chest (1 view) cp 12/07 21:34 Order name: Chest Abd Pelvis Wo Con; Complete Time: 22:27 EDMS 12/07 22:29 Interpretation: Report reviewed. cp 12/07 21:34 Order name: Head C Spine Mpr Wo Con; Complete Time: 22:27 EDMS 12/07 22:30 Interpretation: Report reviewed. cp 12/07 20:42 Order name: Cardiac monitoring; Complete Time: 21:26 cp 12/07 20:42 Order name: EKG - Nurse/Tech; Complete Time: 21:26 cp 12/07 20:42 Order name: IV Saline Lock; Complete Time: 21:26 cp 12/07 20:42 Order name: Labs collected and sent; Complete Time: 21:26 cp 12/07 20:42 Order name: O2 Per Protocol; Complete Time: 21:26 cp 12/07 20:42 Order name: O2 Sat Monitoring; Complete Time: 21:26 cp EC:18 Rate is 48 beats/min. Rhythm is regular. SC interval is normal. QRS interval is normal. cp QT interval is normal. T waves are Inverted in lead aVR. Interpreted by me. Reviewed by me. Administered Medications: 23:36 Drug: Meclizine PO 25 mg PO once Route: PO; tl4 12/08 00:28 Follow up: Response: No adverse reaction lg3 12/07 23:36 Drug: Aspirin PO Chewable Tablet 324 mg PO once; 81 mg tablets x 4 Route: PO; tl4 12/08 00:28 Follow up: Response: No adverse reaction lg3 12/07 23:38 Drug: NS 0.9% IV 250 ml IV at bolus once; to be given as a bolus over 30 minutes Route: tl4 IV; Rate: bolus; Site: right antecubital; Delivery: Primary tubing; 12/08 00:27 Follow up: Response: No adverse reaction; IV Status: Completed infusion; IV Intake: lg3 250ml Disposition: 23:59 Chart complete. cp Disposition Summary: 12/08/23 22:42 Transfer Ordered Notes: Transfer Location: [facility] cp Reason: Higher level of care cp Condition: Stable cp Problem: new cp Symptoms: have improved cp Accepting Physician: DR Murray(12/09/23 00:27) lg3 Diagnosis - Bradycardia, unspecified cp - Syncope Near cp - Chest pain, unspecified cp Forms: - Medication Reconciliation Form cp - SBAR form cp Signatures: Dispatcher [employer] EDMS Jeanmarei Ravi PA PA cp Tracey Mcmahan RN RN lg3 Nakul Parson RN RN ll1 Joel Marie RN RN tl4 Corrections: (The following items were deleted from the chart) 12/07 20:42 20:42 BASIC METABOLIC PANEL+C.LAB.BRZ ordered. EDMS EDMS 20:42 20:42 CBC+H.LAB.BRZ ordered. EDMS EDMS 20:42 20:42 HEPATIC FUNCTION+C.LAB.BRZ ordered. EDMS EDMS 20:42 20:42 MAGNESIUM+C.LAB.BRZ ordered. EDMS EDMS 20:42 20:42 PROTIME (+INR)+COAG.LAB.BRZ ordered. EDMS EDMS 20:42 20:42 Troponin High Sensitivity+C.LAB.BRZ ordered. EDMS EDMS 20:42 20:42 Urinalysis+U.LAB.BRZ ordered. EDMS EDMS 20:42 20:42 Chest Single View+RAD.RAD.BRZ ordered. EDMS EDMS 21:34 20:42 Head C Spine Cap Wo Con+CT.RAD.BRZ ordered. EDMS EDMS 22:31 22:31 Orthostatics ordered. cp cp 23:20 22:42 Doctor cp cp 12/08 00:27 12/07 23:20 DR Murray cp lg3
--- NOTE | 2023-12-08 22:43 | ER ---
Nurse's Notes [facility] Name: Rebeca Navarro Age: 73 yrs Sex: Female : 1950 Arrival Date: 12/08/2023 Time: 18:51 Bed 11 Private MD: Diagnosis: Bradycardia, unspecified;Syncope Near;Chest pain, unspecified Presentation: 12/07 19:07 Chief complaint: Patient states: [place] dizzy today, then fell and hit her head. Still ll1 dizzy, woozy, nausea, and floating feeling since. Coronavirus screen: Client denies travel out of the [place] in the last 14 days. At this time, the client does not indicate any symptoms associated with coronavirus-19. Ebola Screen: Patient denies travel to an Ebola-affected area in the 21 days before illness onset. Initial Sepsis Screen: Does the patient meet any 2 criteria? No. Patient's initial sepsis screen is negative. Does the patient have a suspected source of infection? No. Patient's initial sepsis screen is negative. Risk Assessment: Do you want to hurt yourself or someone else? Patient reports no desire to harm self or others. Onset of symptoms was December 08, 2023. 19:07 Method Of Arrival: Ambulatory ll1 19:07 Acuity: JOSH 2 ll1 Triage Assessment: 19:09 General: Appears uncomfortable, Behavior is calm, cooperative, appropriate for age. ll1 General: Reports fatigue for. Pain: Complains of pain in head. Neuro: Reports dizziness, weakness. GI: Reports nausea. 23:37 Injury Description: Head injury. tl4 Historical: - Allergies: 19:07 Codeine; ll1 - PMHx: 19:07 Anxiety; depressive disorder; diabetes mellitus; Hypertensive disorder; ll1 - PSHx: 19:07 back; cateract; Total abdominal hysterectomy; ll1 - Immunization history:: Adult Immunizations up to date. - Infectious Disease History:: Denies. - Social history:: Smoking status: Patient denies any tobacco usage or history of. Screenin:42 [facility] ED Fall Risk Assessment (Adult) History of falling in the last 3 months, cm10 including since admission Yes- fall prone (multiple falls) (3 pts) Confusion or Disorientation No (0 pts) Intoxicated or Sedated No (0 pts) Impaired Gait Yes (1 pt) Mobility Assist Device Used Yes (1 pt) Altered Elimination No (0 pt) Score/Fall Risk Level 3 or more points = High Risk Oriented to surroundings, Maintained a safe environment, Hourly rounding (assess needs \T\ fall precautionary measures) done. Abuse screen: Denies threats or abuse. Denies injuries from another. Nutritional screening: No deficits noted. Tuberculosis screening: No symptoms or risk factors identified. Assessment: 21:42 General: Appears in no apparent distress. comfortable, Behavior is calm, cooperative, cm10 appropriate for age. Neuro: No deficits noted. Level of Consciousness is awake, alert, obeys commands, Oriented to person, place, time, situation, Appropriate for age. Neuro: Reports dizziness. Respiratory: No deficits noted. Airway is patent Respiratory effort is even, unlabored, Respiratory pattern is regular, symmetrical. Musculoskeletal: Range of motion: intact in all extremities. Vital Signs: 19:07 BP 130 / 62; Pulse 50; Resp 16; Pulse Ox 95% ; Weight 89.36 kg; Height 5 ft. 1 in. ; ll1 Pain 0/10; 21:27 BP 160 / 75; Pulse 46; Resp 18; Pulse Ox 98% on R/A; cm10 19:07 Body Mass Index 37.22 (89.36 kg, 154.94 cm) ll1 19:07 Pain Scale: Adult ll1 Vitals: 21:27 Cardiac Rhythm Assessment Sinus xiao. cm10 Miracle Coma Score: 20:45 Eye Response: spontaneous(4). Motor Response: obeys commands(6). Verbal Response: cp oriented(5). Total: 15. ED Course: 18:54 Patient arrived in ED. mg5 19:09 Triage completed. ll1 19:09 Arm band placed on. ll1 19:34 Jeanmarie Ravi PA is PHCP. cp 19:34 Jeanmarie Reyna MD is Attending Physician. cp 20:48 Abbi Verdugo, [place] is Primary Nurse. cm10 21:10 Assisted with bedpan. cm10 21:26 Urinalysis w/ reflexes Sent. cm10 21:27 Basic Metabolic Panel Sent. cm10 21:27 CBC with Diff Sent. cm10 21:27 LFT's Sent. cm10 21:27 Magnesium Sent. cm10 21:27 PT-INR Sent. cm10 21:27 Troponin HS Sent. cm10 21:27 Initial lab(s) drawn, by me, sent to lab. Urine collected: clean catch specimen, cm10 cloudy, EKG done, by ED staff, reviewed by Jeanmarie ACOSTA. Inserted saline lock: 22 gauge in right antecubital area, using aseptic technique. Blood collected. Flushed with 10 mL NS. 21:34 Chest Abd Pelvis Wo Con In Process Unspecified. EDMS 21:34 Head C Spine Mpr Wo Con In Process Unspecified. EDMS 21:34 XRAY Chest (1 view) In Process Unspecified. EDMS 21:43 Patient has correct armband on for positive identification. Bed in low position. Call cm10 light in reach. Side rails up X2. Provided Education on: ER process and procedures.. 22:07 Report given to CAROLINA Maldonado. cm10 22:49 Initiated transfer with Carin Noriega at [facility]. rv1 23:05 Doc to Doc with [facility] Hospitalist Dr. Murray. rv1 23:18 Dr. Murray accepted patient for transfer. rv1 23:24 Carin Noriega gave bed assignment for pt going to [facility] to [facility] [id number]. rv1 23:29 Gave Nurse to Nurse report to CAROLINA Maldonado. rv1 23:35 Faxed pt facesheet to transfer center. rv1 23:37 No provider procedures requiring assistance completed. Patient transferred, IV remains tl4 in place. 23:43 Called [facility] with EMS for transport, was told they are bringing a patient and will rv1 flower buncher or picker patient after. 23:50 EMS dropping off new patient. rv1 Administered Medications: 23:36 Drug: Meclizine PO 25 mg PO once Route: PO; tl4 12/08 00:28 Follow up: Response: No adverse reaction lg3 12/07 23:36 Drug: Aspirin PO Chewable Tablet 324 mg PO once; 81 mg tablets x 4 Route: PO; tl4 12/08 00:28 Follow up: Response: No adverse reaction lg3 12/07 23:38 Drug: NS 0.9% IV 250 ml IV at bolus once; to be given as a bolus over 30 minutes Route: tl4 IV; Rate: bolus; Site: right antecubital; Delivery: Primary tubing; 12/08 00:27 Follow up: Response: No adverse reaction; IV Status: Completed infusion; IV Intake: lg3 250ml Medication: 12/07 21:42 VIS not applicable for this client. cm10 Intake: 12/08 00:27 IV: 250ml; Total: 250ml. lg3 Outcome: 12/07 22:42 ER care complete, transfer ordered by MD. love 12/08 00:26 Transferred [facility] ground [facility], Transfer form completed. lg3 Condition: stable Instructed on the need for transfer, Demonstrated understanding of instructions, 00:27 Patient left the ED. lg3 Signatures: Dispatcher [employer] EDMS Jeanmarie Ravi PA PA cp Able, Lacie, RN RN lg3 Nakul Parson RN RN ll1 Regina Calle rv1 Abbi Verdugo RN RN cm10 Angelica Kline mg5 Joel Marie RN RN tl4 Corrections: (The following items were deleted from the chart) 12/07 21:34 21:34 In radiology for Head C Spine Cap Wo Con+CT.RAD.BRZ. EDMS EDMS
[2023-12-08] MEDS ORDERED: ASPIRIN 81 MG CHEWABLE TABLET ONE (23:29)
[2023-12-08] MEDS ORDERED: MECLIZINE HCL 12.5 MG TAB ONE (23:29)
[2023-12-08] MEDS ORDERED: NA CHLORIDE 0.9% 250 ML ONE (23:30)
[2023-12-09 04:06] VITALS: BP 160/75; O2SAT 98
--- NOTE | 2023-12-09 09:11 | RAD REPORT ---
EXAMINATION: ONE VIEW CHEST XR CLINICAL INDICATION: dizziness TECHNIQUE: Frontal chest projection is submitted. Examination is limited by patient positioning and t echnique. COMPARISON: 09/10/2013 FINDINGS: [id number] bilateral pulmonary opacities may represent pneumonia or pulmonary edema. The heart is upper limit of normal in size. No displaced fractures identified. Cervical hardware plate. IMPRESSION: Mild CHF is possible.
--- NOTE | 2023-12-09 11:50 | EKG ---
Test Date: 2023-12-08 Test Time: 21:13:26 [employer]il[employer]: VICENTE MEASUREMENT RESULTS: Intervals: Rate: 48 TX: 178 QRSD: 92 QT: 496 QTc: 443 Lamont: P: 32 TX: 178 QRS: -17 T: 23 INTERPRETIVE STATEMENTS: Sinus bradycardia Cannot rule out Anterior infarct, age undetermined Abnormal ECG Compared to ECG 07/25/2014 20:01:37 Myocardial infarct finding now present Sinus rhythm no longer present Electronically Signed On 12-09-23 11:49:56 CDT by Azael De La Torre
== END 2023-12-09 00:27 | disposition short-term general hospital (02) ==
LOC: ER 18:51
DX: R00.1 Bradycardia, unspecified (principal); R55 Syncope and collapse; R07.9 Chest pain, unspecified; W06.XXXA Fall from bed, initial encounter; E11.9 Type 2 diabetes mellitus without complications; I10 Essential (primary) hypertension
CPT/HCPCS: 93005; 85025; 80048; 36415; 83735; 85610; 80076; 81003; 84484; 70450; 71250; 72125; 74176; 71045; 96360; 99285; J8597; J7050